=== PATIENT | male | born 1985 | race Asian ===

== ENCOUNTER → 2017-04-10 | Outpatient (CLI) | payer OTHER ==
--- NOTE | 2017-04-10 14:42 | REP ---
TRIPLE PHASE BONE SCAN OF THE ANKLES AND FEET: Following the intravenous administration of 22 mCi of technetium-99m MDP, patient's ankles and feet are imaged in the flow phase in the anterior and posterior projections showing asymmetric increased blood flow in the left ankle and foot compared to the right. Immediate blood pool and 2 hour delayed images are performed of the ankles and feet in the anterior, posterior, both lateral and plantar projections. There is diffuse soft tissue blood pooling and delayed soft tissue activity in the left ankle and foot region. This is asymmetric compared to the right. No abnormal osseous uptake is seen bilaterally. IMPRESSION: Increased blood flow, blood pooling, and delayed activity in the soft tissues of the left ankle and foot. No abnormal osseous uptake. Signed by Pradeep Oviedo MD 04/10/2017 05:58 P
== END ==
LOC: M RAD 09:43
PROVIDERS: ATTEND Pain Medicine Interventional Pain Medicine
DX: M79.2 Neuralgia and neuritis, unspecified (principal); M79.671 Pain in right foot; Q66.0 Congenital talipes equinovarus